=== PATIENT | female | born 2000 ===

== ENCOUNTER 2023-07-03 23:57 | Inpatient (IN) | payer MEDICAID ==
[2023-07-04] MEDS ORDERED: Ondansetron 4 MG/2 ML SDV IVPUSH PRN (00:41)
[2023-07-04] MEDS ORDERED: Methylergonovine 0.2 MG/1 ML Amp IM PRN (00:41)
[2023-07-04] MEDS ORDERED: Sodium Chloride 0.9% 2.5 ML Syringe FLUSH PRN (00:41)
[2023-07-04] MEDS ORDERED: Misoprostol 200 MCG Tab PO PRN (00:41)
[2023-07-04] MEDS ORDERED: Sodium Chloride 0.9% 10 ML Syringe FLUSH PRN (00:41)
[2023-07-04] MEDS ORDERED: Terbutaline 1 MG/ML SDV SUBCUT PRN (00:41)
[2023-07-04] MEDS ORDERED: Water For Irrigation,Sterile 1,000 ML Container IRR PRN (00:41)
[2023-07-04] MEDS ORDERED: Lidocaine 1% 50 ML MDV INJECT PRN (00:41)
[2023-07-04] MEDS ORDERED: Carboprost Tromethamine 250 MCG/1 mL Vial IM PRN (00:41)
[2023-07-04] MEDS ORDERED: Butorphanol 1 MG/ML SDV IVPUSH PRN (00:41)
[2023-07-04] MEDS ORDERED: Sodium Chloride 0.9% 20 ML SDV IV PRN (00:41)
[2023-07-04] MEDS ORDERED: Tranexamic Acid 1,000 MG in Sodium Chloride 0.9% 100 ML IV PRN (00:41)
[2023-07-04] MEDS ORDERED: Oxytocin/0.9 % Sodium Chloride 30 UNIT/500 ML BAG IV SCH ×2 (00:45)
[2023-07-04] MEDS ORDERED: Nalbuphine HCl 10 MG/ 1ML Amp IM PRN (00:49)
[2023-07-04] MEDS ORDERED: Misoprostol 25 MCG (1/4 of 100 MCG) Tab VAG PRN ×2 (01:00→05:00)
[2023-07-04 01:33] LABS: HEMATOCRIT 32.4 % (36.0-46.0); MEAN CORPUSCULAR HEMOGLOBIN 23.7 pg (27.0-32.0); MEAN CORPUSCULAR HGB CONC 30.9 g/dL (31.0-37.0); MEAN CORPUSCULAR VOLUME 76.8 fL (80.0-98.0); MEAN PLATELET VOLUME 10.3 fL (7.40-12.00); RED BLOOD CELL COUNT 4.22 M/uL (4.30-5.90); WHITE BLOOD CELL COUNT,WBC 12.44 K/uL (4.0-11.0)
[2023-07-04] MEDS: Lactated Ringers 1,000 ML IV SCH ×2 (07:02→13:45)
[2023-07-04] MEDS ORDERED: Dexmedetomidine 200 MCG/2 ML SDV ONE (09:51)
[2023-07-04] MEDS ORDERED: Ropivacaine/PF 400 MG/200 ML PCA ONE (09:51)
[2023-07-04] MEDS ORDERED: Phenylephrine HCl 0.5 MG/5 ML AMP IVPUSH PRN (10:07)
[2023-07-04] MEDS ORDERED: ePHEDrine 50 MG/ML SDV IVPUSH PRN ×2 (10:07)
[2023-07-04] MEDS ORDERED: Ropivacaine HCl/PF 400 MG in Premix Bag 1 BAG EPIDUR SCH (10:15)
[2023-07-04] MEDS ORDERED: Benzocaine/Menthol 20%-0.5% Spray 78 GM Cannister TOP PRN (15:48)
[2023-07-04] MEDS ORDERED: Docusate Sodium 100 MG Cap PO PRN (15:48)
[2023-07-04] MEDS ORDERED: Ibuprofen 800 MG Tab PO PRN (15:48)
[2023-07-04] MEDS ORDERED: Lanolin 100% Cream 7 GM Tube TOP PRN (15:48)
[2023-07-04] MEDS ORDERED: Bisacodyl 10 MG Supp RECTAL PRN (15:48)
[2023-07-04] MEDS ORDERED: Ibuprofen 400 MG Tab PO PRN (15:48)
[2023-07-04] MEDS ORDERED: Acetaminophen 500 MG Tab PO PRN (15:48)
[2023-07-04] MEDS ORDERED: Witch Hazel Medicated Pads 40/Jar TOP PRN (15:48)
[2023-07-04] MEDS: Acetaminophen 500 MG Tab PO PRN (17:50)
[2023-07-05] MEDS: Acetaminophen 500 MG Tab PO PRN (00:11)
[2023-07-05 06:09] LABS: HEMATOCRIT 30.5 % (36.0-46.0); HEMOGLOBIN 9.2 g/dL (12.0-16.0)
== END 2023-07-05 17:40 | disposition home or self-care (01) | DRG 807 ==
LOC: MW.OBCHECK 23:57 → MW.OB 23:58 → MW.OBCHECK 07-04 00:42 → MW.OB 07-04 00:42 → OBSVTOIN 07-04 15:25 → MW.OB 07-04 18:24
PROVIDERS: ADMIT Obstetrics & Gynecology Obstetrics; ATTEND Obstetrics & Gynecology Obstetrics
PROC: 10E0XZZ Delivery of Products of Conception, External Approach (ICD-10-PCS; principal; 2023-07-04)
PROC: 0KQM0ZZ Repair Perineum Muscle, Open Approach (ICD-10-PCS; 2023-07-04)
PROC: 3E0R3BZ Introduction of Anesthetic Agent into Spinal Canal, Percutaneous Approach (ICD-10-PCS; 2023-07-04)
PROC: 00HU33Z Insertion of Infusion Device into Spinal Canal, Percutaneous Approach (ICD-10-PCS; 2023-07-04)
DX: O70.1 Second degree perineal laceration during delivery (principal); Z37.0 Single live birth; Z3A.39 39 weeks gestation of pregnancy
CPT/HCPCS: 01967; 36415; 51702; 59025; 59409; 85014; 85018; 85027; 86592; 86850; 86900; 86901; A9270-GY; J2590; J2795; J3490; J7120